=== PATIENT | male | born 1960 | race Caucasian/White ===

== ENCOUNTER 2020-09-17 07:05 | Outpatient (REF) | payer BC, SELFPAY | END 2020-09-17 07:06 | disposition home or self-care (01) | LOC: HO.LAB 07:05 | PROVIDERS: Visit Provider Internal Medicine | DX: Z20.828 Contact with and (suspected) exposure to other viral communicable diseases (principal) | CPT/HCPCS: C9803; U0003 ==

== ENCOUNTER 2023-03-05 08:59 | Outpatient (REF) | payer OTHER, SELFPAY ==
[2023-03-05 11:20] LABS: MANUAL DIFF FLAG NO
[2023-03-05 11:26] LABS: Appearance Urine Clear; Color Urine Yellow; Glucose Urine UA Negative (Negative); Leukocyte Esterase Urine Negative (Negative); Nitrite Urine Negative (Negative); PH 5.5 (5.0-9.0); Specific Gravity - Urine 1.015 (1.005-1.025); Urine Blood Negative (Negative); Urine Ketones Negative (Negative); Urine Protein Negative (Neg-Trace)
[2023-03-05 11:34] LABS: Bacteria Urine None Seen (None Seen); Hyaline Casts Urine 0-2 /LPF (0-2); RBC Urine 0-2 /HPF (0-2); Squamous Epithelial Cell Urine 0-2 /HPF (0-2); WBC Urine 0-5 /HPF (0-5)
[2023-03-05 11:36] LABS: Basophils Absolute Auto 0.1 X10*3/uL (0.0-0.2); Basophils Percent Auto 0.8 % (0-2); Eosinophils Absolute Auto 0.2 X10*3/uL (0.0-0.4); Eosinophils Percent Auto 2.5 % (0-4); Hematocrit 42.5 % (42.0-52.0); Hemoglobin 14.1 g/dl (14.0-18.0); Imm Gran Abs Auto 0.02 X10*3/uL (0.00-0.03); Imm Gran Pct Auto 0.3 % (0.0-0.4); Lymphocytes Absolute Auto 1.8 X10*3/uL (1.2-4.9); Lymphocytes Percent Auto 29.7 % (20-40); Mean Corpuscular HGB Conc 33.2 g/dl (31.0-36.0); Mean Corpuscular Hemoglobin 30.4 pg (27.0-33.0); Mean Corpuscular Volume 91.6 fL (80.0-98.0); Mean Platelet Volume 10.4 fL (9.4-12.4); Monocytes Absolute Auto 0.6 X10*3/uL (0.1-1.2); Monocytes Percent Auto 10.6 % (2-11); Neutrophils Absolute Auto 3.4 x10*3/uL (2.0-8.3); Neutrophils Percent Auto 56.1 % (45-73); Platelet Count 286 X10*3/uL (160-400); Red Blood Count 4.64 X10*6/uL (4.60-5.80); Red Cell Distribution Width 13.4 % (11.0-16.0); White Blood Count 6.1 X10*3/uL (4.8-10.8)
[2023-03-05 11:37] LABS: Estimated Average Glucose 134 mg/dL; Hemoglobin A1c % 6.3 %
[2023-03-05 12:01] LABS: Alanine Aminotransferase 16 U/L (0-40); Albumin Level 4.3 g/dL (3.5-5.0); Alkaline Phosphatase 59 U/L (39-117); Anion Gap 16 (12-20); Aspartate Amino Transferase 13 U/L (5-37); Blood Urea Nitrogen 33 mg/dL (9-16); Calcium 9.4 mg/dL (8.4-10.2); Carbon Dioxide 27 mmol/L (22-29); Chloride 103 mmol/L (96-108); Cholesterol 191 mg/dL; Estimated Glomerular Filt Rate 45; Glucose Fasting 161 mg/dL (60-99); HDL Cholesterol 38 mg/dL; LDL Cholesterol Calculated 129 mg/dl; PSA,Total (Free>4and<10) 4.06 ng/mL (0.00-4.00); Potassium 3.7 mmol/L (3.3-5.1); Sodium 142 mmol/L (135-145); Total Protein 7.5 g/dL (6.5-8.0); Triglycerides 123 mg/dL
[2023-03-05 12:50] LABS: Creatinine Urine 106.39 mg/dL; Microalbum/Creatinine Ratio Ur 13.1 ug/mg cr
[2023-03-10 13:33] LABS: Free Prostate Spec Ag 0.8 ng/mL; Percent Free Prostate Spec Ag 21 % (calc) (>25); Prostate Specific Ag Total 3.8 ng/mL (< OR = 4.0)
== END 2023-03-05 09:00 | disposition home or self-care (01) ==
LOC: HO.HMGCLDS 08:59
PROVIDERS: PCP Internal Medicine; Visit Provider Internal Medicine
DX: Z00.00 Encounter for general adult medical examination without abnormal findings (principal); I12.9 Hypertensive chronic kidney disease with stage 1 through stage 4 chronic kidney disease, or unspecified chronic kidney disease; G47.33 Obstructive sleep apnea (adult) (pediatric); N18.30 Chronic kidney disease, stage 3 unspecified; R73.9 Hyperglycemia, unspecified; Z99.89 Dependence on other enabling machines and devices
CPT/HCPCS: 36415; 80053; 80061; 81001; 82043; 83036; 84153; 84154; 85025

== ENCOUNTER 2023-04-20 11:49 | Outpatient (AMB) | payer OTHER, SELFPAY ==
--- NOTE | 2023-04-20 11:53 | A.OFFVIS_ITS ---
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 Wilkins. He has a past medical history of hypertension and obstructive sleep apnea on CPAP. He presents to the office today as a new patient today for an elevated PSA. When asked he reports to be doing and feeling well. He discusses having had recent annual physical with PCP at which time PSA was drawn and patient was referred due to elevated PSA. In review of patient's chart it appears PSA 03/03-- 4.1 % free PSA 21%. When asked patient denies any known family history of prostate cancer. He denies having any lower urinary tract symptoms. He denies urinary urgency, urinary frequency, incontinence, nocturia, hematuria, dysuria, foul smelling urine, changes to urinary stream, flank pain, fever, and or chills. He is happy with his current voiding parameters. TEENA offered however declined. Discussed potential causes for elevated PSA. Discussed redraw of PSA as well as retroperitoneal ultrasound for further assessment evaluation. Patient discusses working in [place] and traveling here to take care of his mother was recently had a stroke. He discusses riding his stationary bike 4 to 5 times a week. He otherwise offers no issues or concerns at this time. [facility] Medical History Annual physical exam HTN (hypertension) ROBB on CPAP Social History Housing: House Patient Tobacco Use Status: Never used Tobacco e-Cigarette/Vaping Use: Never Used Current occupational status: employed Cognitive needs: No Hearing needs: No Vision needs: Yes Review of Systems Const All systems reviewed & are unremarkable except as noted in HPI and below Reports no additional complaints Eyes Reports no additional complaints ENT Reports no additional complaints Card Reports as per HPI Resp Reports as per HPI GI Reports no additional complaints Reports no additional complaints Neuro Reports no additional complaints Psych Reports no additional complaints Endo Reports no additional complaints Ezekiel/Lymph Reports no additional complaints Aller/Immun Reports no additional complaints Physical Exam Const General: cooperative, healthy appearing, comfortable, no acute distress, well developed, alert and awake Orientation/consciousness: patient oriented x3 Limitations: no limitations HEENT Head: Yes normal to inspection, Yes normocephalic and Yes atraumatic Ears: hearing grossly normal bilaterally Eyes General: appearance normal, both eyes and all related structures Neck Neck: Yes normal visual inspection and Yes trachea midline Chest Chest palpation & inspection: normal inspection of the chest Resp Effort & Inspection: normal respiratory effort and able to speak in complete sentences Cardio Rate: regular rate GI Inspection: Yes normal to inspection Rectal Exam - Male: Yes deferred General: Yes no CVA tenderness Back/Spine/Pelvis Back: no CVA tenderness Skin General skin exam: no rashes or lesions noted Neuro General: patient oriented x3 Extrem General: Yes normal to inspection Psych Appearance: grossly normal and well kempt Mental Status: mental status grossly normal Speech and movement: Normal speech and movement present and Clear speech present Affect: normal affect Attitude: cooperative Thought process: Normal thought process present Thought content: Normal thought content present Insight: Good insight present (Psych) Judgement: Good judgement present (Psych) Results AMB Urinalysis, Automated UA Leukoctes 0 Regina/uL Last Edit by [employer] on 04/20/23 12:08 UA Nitrite Negative Last Edit by [employer] on 04/20/23 12:08 UA Urobilinogen 0.2 mg/dL Last Edit by [employer] on 04/20/23 12:08 UA Protein 0 mg/dL Last Edit by [employer] on 04/20/23 12:08 UA pH 6.0 Last Edit by [employer] on 04/20/23 12:08 UA Blood 0 Manjeet/uL Last Edit by [employer] on 04/20/23 12:08 UA Specific [place] 1.015 Last Edit by [employer] on 04/20/23 12:08 UA Ketone Negative Last Edit by [employer] on 04/20/23 12:08 UA Bilirubin 0 mg/dL Last Edit by [employer] on 04/20/23 12:08 UA Glucose 0 mg/dL Last Edit by [employer] on 04/20/23 12:08 Results Reviewed Results Reviewed: Laboratory Last Values Urine pH (Auto) 6.0 04/20/23 11:55 Specific [place] (Auto) 1.015 04/20/23 11:55 Urine Protein (Auto) 0 mg/dL 04/20/23 11:55 Glucose (UA)(Auto) 0 mg/dL 04/20/23 11:55 Urine Ketones (Auto) Negative 04/20/23 11:55 Urine Blood (Auto) 0 Manjeet/uL 04/20/23 11:55 Urine Nitrite (Auto) Negative 04/20/23 11:55 Urine Bilirubin (Auto) 0 mg/dL 04/20/23 11:55 Urine Urobilinogen (Auto) 0.2 mg/dL 04/20/23 11:55 Leukocyte Esterase (Auto) 0 Regina/uL 04/20/23 11:55 Assessment & Plan Assessment & Plan (1) Elevated PSA: Code(s): R97.20 - Elevated prostate specific antigen [PSA] Plan In office urinalysis results reviewed with the patient today. Recent PSA results reviewed with the patient today. Patient reports to be happy with his current voiding parameters. Will obtain redraw of PSA with specific instructions of no sex the night prior, no heavy lifting 1-2 days prior and no caffeine morning of lab draw. Discussed avoiding exercise with stationary bike prior to lab draw. TEENA offered however declined/deferred. Will obtain retroperitoneal ultrasound for further assessment evaluation. Discussed at length potential causes for elevated PSA. Follow-up in 4-6 weeks with imaging and lab to be completed prior; or sooner with any issues, concerns, and or questions. Orders: Orders PSA,Total (Free>4and<10) Today R97.20 - Elevated prostate specific antigen [PSA] US retroperitoneal comp Today R39.9 - Unspecified symptoms and signs involving the genitourinary system, R97.20 - Elevated prostate specific antigen [PSA] AMB Urinalysis Automated Today Z13.9 - Encounter for screening, unspecified Patient Instructions: The patient had an opportunity to ask questions regarding the treatment plan. All questions were answered. Physical exam, labs, and imaging were discussed and reviewed in detail. As well as risks, benefits, and discussion of treatment c hoices. No major barriers to understanding were identified. The patient expressed understanding and agreement with the above treatment plan. The patient was made aware they should contact our office by phone for worsening of their current condition, the appearance of new symptoms, or with any questions or concerns. Compliance is encouraged with any medications and follow up testing that is ordered. It is a privilege to be allowed the opportunity to participate in? your urological care.? Again, if you have any questions or concerns If you have any questions or concerns please do not hesitate to contact me. The office is [phone]. This note is constructed using voice recognition software. While every effort has been made to ensure accuracy office support assistant errors may have been included. Yours sincerely, REUBEN Prieto Coding Level of Care Code New Pt Level 3 (09416) Diagnoses Elevated PSA R97.20
== END 2023-04-20 13:33 | disposition home or self-care (01) ==
PROVIDERS: PCP Internal Medicine; Visit Provider Nurse Practitioner Family
DX: R97.20 Elevated prostate specific antigen [PSA] (principal)
CPT/HCPCS: 99203

== ENCOUNTER → 2023-04-20 11:49 | Outpatient (BNVA) | payer OTHER, SELFPAY | PROVIDERS: PCP Internal Medicine; Visit Provider Nurse Practitioner Family | DX: R97.20 Elevated prostate specific antigen [PSA] (principal) | CPT/HCPCS: 99202 ==

== ENCOUNTER 2023-04-21 06:14 | Outpatient (REF) | payer OTHER, SELFPAY ==
[2023-04-21 12:08] LABS: PSA,Total (Free>4and<10) 3.16 ng/mL (0.00-4.00)
== END 2023-04-21 06:15 | disposition home or self-care (01) ==
LOC: HO.HMGCLDS 06:14
PROVIDERS: PCP Internal Medicine; Visit Provider Nurse Practitioner Family
DX: R97.20 Elevated prostate specific antigen [PSA] (principal)
CPT/HCPCS: 36415; 84153

== ENCOUNTER 2023-05-25 08:25 | Outpatient (REF) | payer OTHER, SELFPAY ==
--- NOTE | ~2023-05-25 | US_ITS ---
EXAMINATION: US RETROPERITONEAL COMPLETE (RENAL) CLINICAL INFORMATION: Elevated prostate-specific antigen. COMPARISON: Doppler renal ultrasound 09/15/2019. TECHNIQUE: Real-time imaging of the kidneys and bladder. FINDINGS: RIGHT KIDNEY: 13.3 x 5.2 x 5.8 cm (SAG x AP x TRV). The kidney is normal in size, contour, and echogenicity. Renal cortical thickness is normal. No focal parenchymal lesions or hydronephrosis. At the upper pole, a 3 mm nonobstructing calculus is seen. LEFT KIDNEY: 13.5 x 6.2 x 5.9 cm (SAG x AP x TRV). The kidney is normal in size, contour, and echogenicity. Renal cortical thickness is normal. No calculi or focal parenchymal lesions. No hydronephrosis. BLADDER: Well distended and normal. Bilateral ureteral jets are demonstrated. Prevoid bladder volume is 474 mL. Postvoid bladder volume is 10 mL. OTHER: Prostate dimensions are 5.5 x 4.4 x 5.4 cm, volume 50.6 mL. US/US retroperitoneal comp IMPRESSION: 1. Unremarkable ultrasound examination. 2. There is prostatomegaly.
== END 2023-05-25 08:26 | disposition home or self-care (01) ==
LOC: HO.HMGCX 08:25
PROVIDERS: PCP Internal Medicine; Visit Provider Nurse Practitioner Family
DX: R97.20 Elevated prostate specific antigen [PSA] (principal); R39.9 Unspecified symptoms and signs involving the genitourinary system
CPT/HCPCS: 76770

== ENCOUNTER 2023-06-01 09:16 | Outpatient (AMB) | payer OTHER, SELFPAY ==
--- NOTE | 2023-06-01 09:16 | MHC.OFFVIS ---
Intake Intake Visit Reasons: 6w/US/labs(set) Intake Note: Patient presents for tele visit for labs/ultrasound/ Elevated PSA (psa 4.06) (imaging 05/25/23) Urology Medications: none Blood Thinner: none Receptionist Doctor'S Office Required: No Accompanied by: Self / Same As Patient Allergies No Known Allergies [No Known Allergies*] Allergy (Unverified 06/01/23 09:37) Medication List - Last Reconciled 06/01/23 by RODDY PrietoP- amlodipine 10 mg PO DAILY hydralazine 50 mg PO TID lisinopril 40 mg PO DAILY metoprolol succinate ER 25 mg PO DAILY triamterene-hydrochlorothiazid 37.5-25 mg 1 tab PO QAM HPI HPI Comments History of Present Illness Details Ilir is a very pleasant 62 year old male patient of Dr. Wilkins. He has a past medical history of hypertension and obstructive sleep apnea on CPAP. He is being followed-up on today via telehealth. Of note, patient was previously seen approximately 6 weeks ago as a new patient for an elevated PSA at which time redraw of PSA and retroperitoneal ultrasound was ordered for further assessment evaluation. These results were reviewed with the patient today. Right kidney with no lesions or hydronephrosis. At the upper pole 3 mm nonobstructing calculus is seen. Left kidney with no calculi, lesions, and or hydronephrosis. The bladder is well distended and normal. Pre void bladder volume is approximately 475 mL. Postvoid bladder volume is approximately 10 mL. The prostate is enlarged at approximately 51 mL. PSAs are as follows: 07/2019--3.6 02/2023--4.1 02/2023--3.8 % free--21% 04/2023--3.2 When asked patient reports to be doing and feeling well. He continues to deny any urinary issues or concerns at this time. He denies urinary urgency, urinary frequency, incontinence, nocturia, hematuria, dysuria, foul smelling urine, changes to urinary stream, flank pain, fever, and or chills. He is happy with his current voiding parameters. Discussed potential causes for elevated PSA. Discussed at length prostate biopsy verses trial of finasteride 5 mg daily. Discussed risks and benefits of prostate biopsy verses trial of medication. Discussed nephrolithiasis. Discussed importance of drinking plenty of water daily. Patient otherwise denies any other issues or concerns at this time. [facility] Medical History Annual physical exam HTN (hypertension) ROBB on CPAP Social History Housing: House Patient Tobacco Use Status: Never used Tobacco e-Cigarette/Vaping Use: Never Used Current occupational status: employed Cognitive needs: No Hearing needs: No Vision needs: Yes Review of Systems Const All systems reviewed & are unremarkable except as noted in HPI and below Reports no additional complaints Eyes Reports no additional complaints ENT Reports no additional complaints Card Reports as per HPI Resp Reports as per HPI GI Reports no additional complaints Reports no additional complaints Neuro Reports no additional complaints Psych Reports no additional complaints Endo Reports no additional complaints Ezekiel/Lymph Reports no additional complaints Aller/Immun Reports no additional complaints Physical Exam Const General: cooperative Resp Effort & Inspection: able to speak in complete sentences Psych Speech and movement: Clear speech present Attitude: cooperative Thought process: Normal thought process present Thought content: Normal thought content present Insight: Good insight present (Psych) Judgement: Good judgement present (Psych) Results Reviewed Results Reviewed: Ordering Physician: Megan Burgos Date of Service: 05/25/23 Procedure(s): US retroperitoneal comp Accession Number(s): [id number] cc: Megan Burgos~ EXAMINATION: US RETROPERITONEAL COMPLETE (RENAL) CLINICAL INFORMATION: Elevated prostate-specific antigen. COMPARISON: Doppler renal ultrasound 09/15/2019. TECHNIQUE: Real-time imaging of the kidneys and bladder. FINDINGS: RIGHT KIDNEY: 13.3 x 5.2 x 5.8 cm (SAG x AP x TRV). The kidney is normal in size, contour, and echogenicity. Renal cortical thickness is normal. No focal parenchymal lesions or hydronephrosis. At the upper pole, a 3 mm nonobstructing calculus is seen. LEFT KIDNEY: 13.5 x 6.2 x 5.9 cm (SAG x AP x TRV). The kidney is normal in size, contour, and echogenicity. Renal cortical thickness is normal. No calculi or focal parenchymal lesions. No hydronephrosis. BLADDER: Well distended and normal. Bilateral ureteral jets are demonstrated. Prevoid bladder volume is 474 mL. Postvoid bladder volume is 10 mL. OTHER: Prostate dimensions are 5.5 x 4.4 x 5.4 cm, volume 50.6 mL. US/US retroperitoneal comp IMPRESSION: ? 1. Unremarkable ultrasound examination. ? 2. There is prostatomegaly. Assessment & Plan Assessment & Plan (1) Enlarged prostate: Code(s): N40.0 - Benign prostatic hyperplasia without lower urinary tract symptoms (2) Elevated PSA: Code(s): R97.20 - Elevated prostate specific antigen [PSA] Plan Recent retroperitoneal ultrasound results reviewed with the patient today; as noted above. Recent PSA results reviewed with the patient today; as noted above. Start finasteride 5 mg daily as discussed and prescribed. Discussed at length potential causes for elevated PSA and enlarged prostate Discussed prostate biopsy verses trial of finasteride 5 mg daily; discussed risks and benefits of both treatment options at length Discussed nephrolithiasis Educated, encouraged, instructed on the importance of drinking plenty of water daily. Discussed adding 1 oz of lemon juice to water daily. Patient denies any urinary issues or concerns at this time; he is happy with his current voiding parameters PSA in 4 months; with no sex the night before, no caffeine morning of, and no heavy lifting 2-3 days prior to lab draw Follow-up in 4 months with lab to be completed prior or sooner with any issues, concerns, and or questions. Orders: Orders Prostate Specific Antigen 4 Months R97.20 - Elevated prostate specific antigen [PSA] Patient Instructions: The patient had an opportunity to ask questions regarding the treatment plan. All questions were answered. Physical exam, labs, and imaging were discussed and reviewed in detail. As well as risks, benefits, and discussion of treatment choices. No major barriers to understanding were identified. The patient expressed understanding and agreement with the above treatment plan. The patient was made aware they should contact our office by phone for worsening of their current condition, the appearance of new symptoms, or with any questions or concerns. Compliance is encouraged with any medications and follow up testing that is ordered. It is a privilege to be allowed the opportunity to participate in? your urological care.? Again, if you have any questions or concerns If you have any questions or concerns please do not hesitate to contact me. The office is [phone]. This note is constructed using voice recognition software. While every effort has been made to ensure accuracy assembler clip on sunglasses errors may have been included. Yours sincerely, SAMIA Prieto- Telehealth Telehealth Location of provider rendering services: practice address Location of patient: address on file Patient Identification confirmed using: Name, : Yes Telehealth method: voice only Patient verbally consented to treatment: Yes Patient verbally consented to billing insurance company: Yes Patient informed of any privacy concerns related to visit: Yes Minutes spent on Phone/Video with Pt.: 15 Coding Level of Care Code Tele Est Pt Level 4 (49113) Diagnoses Enlarged prostate N40.0 Elevated PSA R97.20 Time Spent (min) 15
== END 2023-06-01 14:45 | disposition home or self-care (01) ==
LOC: HO.HUSH 09:16
PROVIDERS: PCP Internal Medicine; Visit Provider Nurse Practitioner Family
DX: N40.0 Benign prostatic hyperplasia without lower urinary tract symptoms (principal); R97.20 Elevated prostate specific antigen [PSA]
CPT/HCPCS: 99213

== ENCOUNTER → 2023-06-01 09:16 | Outpatient (BNVA) | payer OTHER, SELFPAY | PROVIDERS: PCP Internal Medicine; Visit Provider Nurse Practitioner Family ==

== ENCOUNTER 2024-05-23 07:18 | Outpatient (REF) | payer MEDICARE, SELFPAY ==
[2024-05-23 09:51] LABS: MANUAL DIFF FLAG NO
[2024-05-23 10:00] LABS: Basophils Absolute Auto 0.1 X10*3/uL (0.0-0.2); Basophils Percent Auto 0.7 % (0-2); Eosinophils Absolute Auto 0.1 X10*3/uL (0.0-0.4); Hematocrit 40.4 % (42.0-52.0); Hemoglobin 13.8 g/dl (14.0-18.0); Imm Gran Abs Auto 0.02 X10*3/uL (0.00-0.03); Imm Gran Pct Auto 0.3 % (0.0-0.4); Lymphocytes Absolute Auto 2.3 X10*3/uL (1.2-4.9); Lymphocytes Percent Auto 34.1 % (20-40); Mean Corpuscular HGB Conc 34.2 g/dl (31.0-36.0); Mean Corpuscular Volume 90.8 fL (80.0-98.0); Mean Platelet Volume 10.4 fL (9.4-12.4); Monocytes Absolute Auto 0.7 X10*3/uL (0.1-1.2); Monocytes Percent Auto 10.2 % (2-11); Neutrophils Absolute Auto 3.6 x10*3/uL (2.0-8.3); Neutrophils Percent Auto 52.7 % (45-73); Platelet Count 314 X10*3/uL (160-400); Red Blood Count 4.45 X10*6/uL (4.60-5.80); Red Cell Distribution Width 13.4 % (11.0-16.0); White Blood Count 6.8 X10*3/uL (4.8-10.8)
[2024-05-23 10:14] LABS: Alanine Aminotransferase 12 U/L (0-40); Albumin Level 4.1 g/dL (3.5-5.0); Alkaline Phosphatase 65 U/L (39-117); Anion Gap 12 (12-20); Aspartate Amino Transferase 12 U/L (5-37); Bilirubin Total 0.4 mg/dL (0.0-1.0); Blood Urea Nitrogen 25 mg/dL (9-16); Calcium 9.4 mg/dL (8.4-10.2); Carbon Dioxide 29 mmol/L (22-29); Chloride 105 mmol/L (96-108); Cholesterol 163 mg/dL (<200); Estimated Glomerular Filt Rate 46; Glucose Fasting 126 mg/dL (60-99); HDL Cholesterol 38 mg/dL (>40); LDL Cholesterol Calculated 99 mg/dL (<100); Potassium 3.6 mmol/L (3.3-5.1); Sodium 142 mmol/L (135-145); Total Protein 7.5 g/dL (6.5-8.0); Triglycerides 133 mg/dL (<150)
[2024-05-23 10:28] LABS: Creatinine Urine 124.26 mg/dL; Microalbum/Creatinine Ratio Ur 32.9 ug/mg cr (<30)
[2024-05-23 10:29] LABS: Appearance Urine Clear; Color Urine Yellow; Glucose Urine UA Negative (Negative); Leukocyte Esterase Urine Negative (Negative); Nitrite Urine Negative (Negative); PH 6.5 (5.0-9.0); Specific Gravity - Urine 1.015 (1.005-1.025); Urine Blood Negative (Negative); Urine Ketones Negative (Negative); Urine Protein Negative (Neg-Trace)
[2024-05-23 10:38] LABS: Bacteria Urine None Seen (None Seen); Hyaline Casts Urine 0-2 /LPF (0-2); RBC Urine 0-2 /HPF (0-2); Squamous Epithelial Cell Urine 0-2 /HPF (0-2); WBC Urine 0-5 /HPF (0-5)
[2024-05-23 10:39] LABS: PSA,Total (Free>4and<10) 5.47 ng/mL (0.00-4.00)
[2024-05-23 10:52] LABS: Estimated Average Glucose 134 mg/dL; Hemoglobin A1c % 6.3 % (<6.0)
[2024-05-24 10:58] LABS: Free Prostate Spec Ag 0.9 ng/mL; Percent Free Prostate Spec Ag 18 % (calc) (>25)
== END 2024-05-23 07:19 | disposition home or self-care (01) ==
LOC: HO.HMGCLDS 07:18
PROVIDERS: PCP Internal Medicine; Visit Provider Internal Medicine
DX: I10 Essential (primary) hypertension (principal); N18.30 Chronic kidney disease, stage 3 unspecified; R73.9 Hyperglycemia, unspecified; R97.20 Elevated prostate specific antigen [PSA]; Z12.5 Encounter for screening for malignant neoplasm of prostate
CPT/HCPCS: 36415; 80053; 80061; 81001; 82043; 82570; 83036; 84153; 84154; 85025

== ENCOUNTER 2024-05-24 13:23 | Outpatient (AMB) | payer MEDICARE, SELFPAY ==
[2024-05-24 13:24] VITALS: BP 128/74; PULSE 97; O2SAT 98; BMI 35.6
--- NOTE | 2024-05-24 13:24 | A.OFFPC_ITS ---
Vital Signs 05/24/24 13:24 Height 5 ft 8 in Weight 234 lb BMI 35.6 BP 128/74 Blood Pressure Location Lt brachial Position Sitting Pulse 97 Pulse Source Pulse Oximeter Pulse Oximetry (%) 98 Oxygen Delivery Method Room Air Intake Visit Reasons: PE Intake Note: Pt is here today for PE. Allergies No Known Allergies [No Known Allergies*] Allergy (Unverified 05/24/24 13:26) Medication List - Last Reconciled 05/24/24 by Amira Wilkins MD amlodipine 10 mg PO DAILY finasteride 5 mg PO DAILY 90 days hydralazine 50 mg PO TID lisinopril 40 mg PO DAILY metoprolol succinate ER 25 mg PO DAILY triamterene-hydrochlorothiazid 37.5-25 mg 1 tab PO QAM Tobacco use date assessed: 05/24/24 Fall risk assessment: No Falls in past year Last assessed Fall Risk: 05/24/24 Dental Screening Dental Screen Date: 05/24/24 Did you have a dental visit in the last 12 months?: Yes Did you have a dental problem in the last 6 months where you did not have access to dental care?: No Was dental information given to patient?: Patient has dentist HPI PE HPI Details Pt presents for PE. [facility] Medical History ROBB on CPAP Annual physical exam HTN (hypertension) Surgical History H/O eye surgery Social History (Updated 05/24/24 @ 14:13 by Amira Wilkins MD) Household Members Other:: Patient spends a lot of time in [facility] taking care of her mother Housing: House Patient Tobacco Use Status: Never used Tobacco e-Cigarette/Vaping Use: Never Used service: No Current occupational status: employed Cognitive needs: No Hearing needs: No Vision needs: Yes Questionnaire PHQ-9 Over the last 2 weeks, how often have you been bothered by any of the following problems? 1. Little interest or pleasure in doing things: not at all 2. Feeling down, depressed, or hopeless: not at all 3. Trouble falling or staying asleep, or sleeping too much: not at all 4. Feeling tired or having little energy: not at all 5. Poor appetite or overeating: not at all 6. Feeling bad about yourself - or that you are a failure or have let yourself or your family down: not at all 7. Trouble concentrating on things, such as reading the newspaper or watching television: not at all 8. Moving or speaking so slowly that other people could have noticed. Or the opposite - being so fidgety or restless that you have been moving around a lot more than usual: not at all 9. Thoughts that you would be better off or of hurting yourself in some way: not at all Total score: 0 Depression Screening Interpretation: Negative Depression Screening Done: Yes 23237 - PHQ-9 Billing: Yes Source: Developed by Drs. Kayden Larson, Yaneth Garland, Roel Rivera and colleagues, with an educational irene from [employer]. Thrive Questionnaire Date Thrive assessed: 05/24/24 I am a: Patient What is your living situation today?: I have a steady place to live Within the past 12 months, did the food you bought not last and you didn't have the money to get more?: Never true Within the past 12 months, did you worry whether your food would run out before you got money to buy more?: Never true Do you have trouble paying for medicines?: No Do you have trouble getting transportation to medical appointments?: No Do you have trouble paying your heating and electricity bill?: No Do you have trouble taking care of your child, family member or friend?: No Do you have trouble with day-to-day activities such as bathing, preparing meals, shopping, managing finances, etc.?: No Are you currently unemployed and looking for a job?: No Are you interested in more education?: No Please select the resources that you would like help with: None Currently or been in a relationship where the following occur: No concerns reported THRIVE Score: 0 AUDIT C Alcohol Use Questionnaire (AUDIT-C) 1. How often do you have a drink containing alcohol?: Monthly or less 2. How many drinks containing alcohol do you have on a typical day when you are drinking?: 1 or 2 3. How often do you have six or more drinks on one occasion?: Never Total Score: 1 JESSI-7 AMB Questionnaire JESSI-7 Date JESSI - 7 assessed: 05/24/24 Feeling nervous, anxious, or on edge: 0 = Not at all Not being able to stop or control worryin = Not at all Worrying too much about different things: 0 = Not at all Trouble relaxin = Not at all Being so restless that it is hard to sit still: 0 = Not at all Becoming easily annoyed or irritable: 0 = Not at all Feeling afraid as if something awful might happen: 0 = Not at all Total JESSI-7 score (0-4 normal; 5-9 mild; 10-14 moderate; 15-21 severe): 0 Source: Developed by Drs. Kayden Larson, Yaneth Garland, Roel Rivera and colleagues, with an educational irene from [employer]. JESSI-7 Assessment Billing JESSI-7 Assessment Tool: JESSI-7 Assessment 54829 Review of Systems Const All systems reviewed & are unremarkable except as noted in HPI and below Eyes Reports no additional complaints ENT Reports no additional complaints Card Reports no additional complaints Resp Reports no additional complaints GI Reports no additional complaints Reports no additional complaints Physical exam (Primary Care) Vital Signs: Last Vital Signs Pulse 97 05/24/24 13:24 BP 128/74 05/24/24 13:24 Pulse Ox 98 05/24/24 13:24 Oxygen Delivery Method Room Air 05/24/24 13:24 BMI result Body Mass Index 35.6 Tobacco/Smoking Status: Tobacco use Status Tobacco use date assessed 05/24/24 05/24/24 13:30 Patient Tobacco Use Status Never used Tobacco 05/24/24 13:30 e-Cigarette/Vaping Use Never Used 05/24/24 13:30 PHQ-9: PHQ-9 Score PHQ-9: Total score 0 05/24/24 13:37 Depression Screening Interpretation: Negative Thrive Assessment: Date of Thrive Assessment Date Thrive assessed 05/24/24 05/24/24 13:30 Currently or been in a relationship where the following occur: No concerns reported Const General: no acute distress HENMT Head: Yes normal to inspection Throat: Yes posterior oropharynx normal Neck Neck: Yes supple Resp Effort & Inspection: normal respiratory effort Auscultation: clear to auscultation bilaterally Cardio Rhythm: regular rhythm Heart sounds: S1 normal heart sound present and S2 normal heart sound present GI Inspection: Yes normal to inspection Palpation (GI): Soft to palpation Percussion: Yes normal to percussion Auscultation: normal bowel sounds Extrem General: Yes no clubbing, cyanosis or edema Assessment and Plan Assessment & Plan (1) HTN (hypertension): Code(s): I10 - Essential (primary) hypertension Plan: Continue current medications (2) Annual physical exam: Code(s): Z00.00 - Encounter for general adult medical examination without abnormal findings Plan: Well-balanced diet regular exercise weight loss discussed with the patient. He declined colonoscopy Cologuard will be ordered (3) CKD (chronic kidney disease) stage 3, GFR 30-59 ml/min: Comment: RENAL US 04/2023 no obstruction, 2 mm left kidney stone Code(s): N18.30 - Chronic kidney disease, stage 3 unspecified Plan: Avoid nephrotoxins monitor renal function (4) Hyperglycemia: Comment: A1C 6.3 , ADA diet, declined med 05/2024 Code(s): R73.9 - Hyperglycemia, unspecified Plan: ADA diet increase exercise weight loss discussed with the patient (5) Elevated PSA: Comment: started on Finasteride, 05/2024 Code(s): R97.20 - Elevated prostate specific antigen [PSA] Plan: Patient will restart finasteride PSA will be checked in 1 year Orders: Orders Comprehensive [place]. Panel Fast 1 Year I10 - Essential (primary) hypertension, N18.30 - Chronic kidney disease, stage 3 unspecified, R73.9 - Hyperglycemia, unspecified, R97.20 - Elevated prostate specific antigen [PSA], Z00.00 - Encounter for general adult medical examination without abnormal findings Microalbumin, Random (w Creat) 1 Year I10 - Essential (primary) hypertension, N18.30 - Chronic kidney disease, stage 3 unspecified, R73.9 - Hyperglycemia, unspecified, R97.20 - Elevated prostate specific antigen [PSA], Z00.00 - Encounter for general adult medical examination without abnormal findings Complete Blood Count Auto Diff 1 Year I10 - Essential (primary) hypertension, N18.30 - Chronic kidney disease, stage 3 unspecified, R73.9 - Hyperglycemia, unspecified, R97.20 - Elevated prostate specific antigen [PSA], Z00.00 - Encounter for general adult medical examination without abnormal findings Lipid Panel 1 Year I10 - Essential (primary) hypertension, N18.30 - Chronic kidney disease, stage 3 unspecified, R73.9 - Hyperglycemia, unspecified, R97.20 - Elevated prostate specific antigen [PSA], Z00.00 - Encounter for general adult medical examination without abnormal findings Hemoglobin A1c 1 Year I10 - Essential (primary) hypertension, N18.30 - Chronic kidney disease, stage 3 unspecified, R73.9 - Hyperglycemia, unspecified, R97.20 - Elevated prostate specific antigen [PSA], Z00.00 - Encounter for general adult medical examination without abnormal findings UA w Microscopic 1 Year I10 - Essential (primary) hypertension, N18.30 - Chronic kidney disease, stage 3 unspecified, R73.9 - Hyperglycemia, unspecified, R97.20 - Elevated prostate specific antigen [PSA], Z00.00 - Encounter for general adult medical examination without abnormal findings PSA,Total (Free>4and<10) 1 Year I10 - Essential (primary) hypertension, N18.30 - Chronic kidney disease, stage 3 unspecified, R73.9 - Hyperglycemia, unspecified, R97.20 - Elevated prostate specific antigen [PSA], Z00.00 - Encounter for general adult medical examination without abnormal findings Referrals Cologuard Test Z12.11 - Encounter for screening for malignant neoplasm of colon, Z12.12 - Encounter for screening for malignant neoplasm of rectum Medications: Refilled finasteride 5 mg PO DAILY 90 days 90 tabs 3RF finasteride 5 mg PO DAILY 90 days 90 tabs 1RF triamterene-hydrochlorothiazid 37.5-25 mg 1 tab PO QAM 90 tabs 3RF Coding Level of Care Code Est Pt Prev Care >65y(22966) Diagnoses HTN (hypertension) I10 Annual physical exam Z00.00 CKD (chronic kidney disease) stage 3, GFR 30-59 ml/min N18.30 Hyperglycemia R73.9 Elevated PSA R97.20 Additional Codes JESSI-7 Assessment Billing - JESSI-7 Assessment Tool: JESSI-7 Assessment 19406 ([id number])
== END 2024-05-24 14:04 | disposition home or self-care (01) ==
PROVIDERS: PCP Internal Medicine; Visit Provider Internal Medicine
DX: Z00.00 Encounter for general adult medical examination without abnormal findings (principal); I12.9 Hypertensive chronic kidney disease with stage 1 through stage 4 chronic kidney disease, or unspecified chronic kidney disease; N18.30 Chronic kidney disease, stage 3 unspecified; R73.9 Hyperglycemia, unspecified; R97.20 Elevated prostate specific antigen [PSA]
CPT/HCPCS: 99397

== ENCOUNTER 2025-06-07 10:05 | Outpatient (AMB) | payer MEDICARE, SELFPAY ==
--- NOTE | 2025-06-07 10:12 | A.OFFPC_ITS ---
Vital Signs 06/07/25 10:13 Height 5 ft 8 in Weight 240 lb BMI 36.5 BP 130/74 Blood Pressure Location Rt brachial Position Sitting Respiration 18 Pulse 78 Pulse Source Pulse Oximeter Temp 98.2 F Temp Source Oral Pulse Oximetry (%) 97 Oxygen Delivery Method Room Air Intake Visit Reasons: Annual PE - see comments Intake Note: Pt is here today for PE. Allergies No Known Allergies (No Known Allergies*) Allergy (Unverified 06/07/25 10:16) Medication List - Last Reconciled 06/07/25 by Amira Wilkins MD amlodipine 10 mg PO DAILY finasteride 5 mg PO DAILY 90 days hydralazine 50 mg PO TID lisinopril 40 mg PO DAILY metoprolol succinate ER 25 mg PO DAILY triamterene-hydrochlorothiazid 37.5-25 mg 1 tab PO QAM Tobacco use date assessed: 06/07/25 Fall risk assessment: No Falls in past year Last assessed Fall Risk: 06/07/25 Dental Screening Dental Screen Date: 06/07/25 Did you have a dental visit in the last 12 months?: Yes Did you have a dental problem in the last 6 months where you did not have access to dental care?: No Was dental information given to patient?: Patient has dentist [facility] Medical History (Updated 06/07/25 @ 10:55 by Amira Wilkins MD) Obesity, Class II, BMI 35-39.9 Colonoscopy refused Elevated PSA CKD (chronic kidney disease) stage 3, GFR 30-59 ml/min Hyperglycemia ROBB on CPAP Annual physical exam HTN (hypertension) Surgical History H/O eye surgery Social History Household Members Other:: Patient spends a lot of time in [facility] taking care of her mother Housing: House Patient Tobacco Use Status: Never used Tobacco e-Cigarette/Vaping Use: Never Used service: No Current occupational status: employed Cognitive needs: No Hearing needs: No Vision needs: Yes Questionnaire PHQ-9 Over the last 2 weeks, how often have you been bothered by any of the following problems? 1. Little interest or pleasure in doing things: not at all 2. Feeling down, depressed, or hopeless: not at all 3. Trouble falling or staying asleep, or sleeping too much: not at all 4. Feeling tired or having little energy: not at all 5. Poor appetite or overeating: not at all 6. Feeling bad about yourself - or that you are a failure or have let yourself or your family down: not at all 7. Trouble concentrating on things, such as reading the newspaper or watching television: not at all 8. Moving or speaking so slowly that other people could have noticed. Or the opposite - being so fidgety or restless that you have been moving around a lot more than usual: not at all 9. Thoughts that you would be better off or of hurting yourself in some way: not at all Total score: 0 Depression Screening Interpretation: Negative Depression Screening Done: Yes 36743 - PHQ-9 Billing: Yes Source: Developed by Drs. Kayden Larson, Yaneth Garland, Roel Rivera and colleagues, with an educational irene from [employer]. Thrive Questionnaire Date Thrive assessed: 06/07/25 I am a: Patient What is your living situation today?: I have a steady place to live Within the past 12 months, did the food you bought not last and you didn't have the money to get more?: Never true Within the past 12 months, did you worry whether your food would run out before you got money to buy more?: Never true Do you have trouble paying for medicines?: No Do you have trouble getting transportation to medical appointments?: No Do you have trouble paying your heating and electricity bill?: No Do you have trouble taking care of your child, family member or friend?: No Do you have trouble with day-to-day activities such as bathing, preparing meals, shopping, managing finances, etc.?: No Are you currently unemployed and looking for a job?: No Are you interested in more education?: No Please select the resources that you would like help with: None Currently or been in a relationship where the following occur: No concerns reported THRIVE Score: 0 AUDIT C Alcohol Use Questionnaire (AUDIT-C) 1. How often do you have a drink containing alcohol?: Monthly or less 2. How many drinks containing alcohol do you have on a typical day when you are drinking?: 1 or 2 3. How often do you have six or more drinks on one occasion?: Never Total Score: 1 JESSI-7 AMB Questionnaire JESSI-7 Date JESSI - 7 assessed: 06/07/25 Feeling nervous, anxious, or on edge: 0 = Not at all Not being able to stop or control worryin = Not at all Worrying too much about different things: 0 = Not at all Trouble relaxin = Not at all Being so restless that it is hard to sit still: 0 = Not at all Becoming easily annoyed or irritable: 0 = Not at all Feeling afraid as if something awful might happen: 0 = Not at all Total JESSI-7 score (0-4 normal; 5-9 mild; 10-14 moderate; 15-21 severe): 0 Source: Developed by Drs. Kayden Larson, Yaneth Garland, Roel Rivera and colleagues, with an educational irene from [employer]. JESSI-7 Assessment Billing JESSI-7 Assessment Tool: JESSI-7 Assessment 69834 Review of Systems Const All systems reviewed & are unremarkable except as noted in HPI and below Eyes Reports no additional complaints ENT Reports no additional complaints Card Reports no additional complaints Resp Reports no additional complaints GI Reports no additional complaints Reports no additional complaints Physical exam (Primary Care) Vital Signs: Last Vital Signs Temp 98.2 F 06/07/25 10:13 Pulse 78 06/07/25 10:13 Resp 18 06/07/25 10:13 BP 130/74 06/07/25 10:13 Pulse Ox 97 06/07/25 10:13 Oxygen Delivery Method Room Air 06/07/25 10:13 BMI result Body Mass Index 36.5 Tobacco/Smoking Status: Tobacco use Status Tobacco use date assessed 06/07/25 06/07/25 10:19 Patient Tobacco Use Status Never used Tobacco 06/07/25 10:19 e-Cigarette/Vaping Use Never Used 06/07/25 10:13 PHQ-9: PHQ-9 Score PHQ-9: Total score 0 06/07/25 10:19 Depression Screening Interpretation: Negative Thrive Assessment: Date of Thrive Assessment Date Thrive assessed 06/07/25 06/07/25 10:19 Currently or been in a relationship where the following occur: No concerns reported Const General: no acute distress HENMT Head: Yes normal to inspection Mouth: Normal oral and palatal mucosa present Throat: Yes posterior oropharynx normal Neck Neck: Yes no lymphadenopathy and Yes supple Resp Effort & Inspection: normal respiratory effort Auscultation: clear to auscultation bilaterally Cardio Rhythm: regular rhythm Heart sounds: S1 normal heart sound present and S2 normal heart sound present GI Inspection: Yes normal to inspection Palpation (GI): Soft to palpation Percussion: Yes normal to percussion Auscultation: normal bowel sounds Coding Level of Care Code Est Pt Prev Care >65y(97813) Diagnoses CKD (chronic kidney disease) stage 3, GFR 30-59 ml/min N18.30 Annual physical exam Z00.00 Elevated PSA R97.20 ROBB on CPAP G47.33; Z99.89 HTN (hypertension) I10 Hyperglycemia R73.9 Obesity, Class II, BMI 35-39.9 E66.812 Additional Codes JESSI-7 Assessment Billing - JESSI-7 Assessment Tool: JESSI-7 Assessment 50424 ([id number]) PHQ-9 - 21848 - PHQ-9 Billing: Yes ([id number]) Assessment & Plan Assessment & Plan (1) CKD (chronic kidney disease) stage 3, GFR 30-59 ml/min: Comment: RENAL US 04/2023 no obstruction, 2 mm left kidney stone Code(s): N18.30 - Chronic kidney disease, stage 3 unspecified Category: Medical Plan: Avoid nephrotoxins monitor renal function patient will return for fasting labs tomorrow (2) Annual physical exam: Code(s): Z00.00 - Encounter for general adult medical examination without abnormal findings Category: Medical Plan: Well-balanced diet regular physical activity weight loss discussed with the patient. He refused colonoscopy Cologuard is ordered. (3) Elevated PSA: Comment: started on Finasteride, 05/2024 Code(s): R97.20 - Elevated prostate specific antigen [PSA] Category: Medical Plan: Continue finasteride check PSA (4) ROBB on CPAP: Code(s): G47.33 - Obstructive sleep apnea (adult) (pediatric); Z99.89 - Dependence on other enabling machines and devices Category: Medical Plan: Continue CPAP patient will obtain report on a compliance (5) HTN (hypertension): Code(s): I10 - Essential (primary) hypertension Category: Medical Plan: Continue current medications (6) Hyperglycemia: Comment: A1C 6.3 , ADA diet, declined med 05/2024 Code(s): R73.9 - Hyperglycemia, unspecified Category: Medical Plan: ADA diet increase exercise weight loss discussed with the patient check A1c tomorrow follow-up in 4 months with a fasting labs before (7) Obesity, Class II, BMI 35-39.9: Code(s): E66.812 - Obesity, class 2 Category: Medical Plan: Decreasing caloric intake increasing physical activity discussed with the patient. He may benefit from GLP 1 agonist if the A1c is 6.5 or above 2 facilitate weight loss Orders: Orders Complete Blood Count Auto Diff 4 Months N18.30 - Chronic kidney disease, stage 3 unspecified, R73.9 - Hyperglycemia, unspecified Hemoglobin A1c 4 Months N18.30 - Chronic kidney disease, stage 3 unspecified, R73.9 - Hyperglycemia, unspecified Comprehensive [place]. Panel Fast 4 Months N18.30 - Chronic kidney disease, stage 3 unspecified, R73.9 - Hyperglycemia, unspecified Referrals Cologuard Test Z12.11 - Encounter for screening for malignant neoplasm of colon, Z12.12 - Encounter for screening for malignant neoplasm of rectum
[2025-06-07 10:13] VITALS: BP 130/74; PULSE 78; RESP 18; TEMP 36.8; O2SAT 97; BMI 36.5
--- OUTSIDE RECORDS SUMMARY | 2025-06-07 10:54 | XMS_ITS | Continuity of Care Document ---
Author Organization [facility] Address [address] [place] [address] Phone [phone] Care Team Providers Care Cold Rolling Coordinator Name Role Phone Danny Shay MD Care Team Information Banking Services Officer U navailable Problems Active Problems Provider Date Hypertensive disorder TY Lenz Onse t: 06/18/2022 Allergies and adverse reactions Description No Known Drug Allergies Medications Active Medications SIG Qnty Indications Order ing Provider Date Diclofenac Sodium [id number] Tablets ER 24HR take one tab by mouth every day with food 30tabs Laurel Madrdi MD 12/29/2022 Lisinopril Unknown 000 0 Hydrochlorothiazide Unknown Medications Administered in Office Medication SIG Qnty Indications Ordering Provider Date Inject/Drain Arthrocentesis Intermediate Joint/BursaInjection TY Ware 01/12/2023
== END 2025-06-07 10:53 | disposition home or self-care (01) ==
LOC: HO.HMCC 10:06
PROVIDERS: PCP Internal Medicine; Visit Provider Internal Medicine
DX: Z00.00 Encounter for general adult medical examination without abnormal findings (principal); E66.812 Obesity, class 2; N18.30 Chronic kidney disease, stage 3 unspecified; Z68.36 Body mass index [BMI] 36.0-36.9, adult; I12.9 Hypertensive chronic kidney disease with stage 1 through stage 4 chronic kidney disease, or unspecified chronic kidney disease; R97.20 Elevated prostate specific antigen [PSA]; G47.33 Obstructive sleep apnea (adult) (pediatric); Z99.89 Dependence on other enabling machines and devices; R73.9 Hyperglycemia, unspecified

== ENCOUNTER → 2025-06-07 10:05 | Outpatient (BNVA) | payer MEDICARE, SELFPAY | PROVIDERS: PCP Internal Medicine; Visit Provider Internal Medicine | DX: Z00.00 Encounter for general adult medical examination without abnormal findings (principal); I12.9 Hypertensive chronic kidney disease with stage 1 through stage 4 chronic kidney disease, or unspecified chronic kidney disease; N18.30 Chronic kidney disease, stage 3 unspecified; R97.20 Elevated prostate specific antigen [PSA]; R73.9 Hyperglycemia, unspecified; G47.33 Obstructive sleep apnea (adult) (pediatric); E66.812 Obesity, class 2; Z68.26 Body mass index [BMI] 26.0-26.9, adult; Z71.3 Dietary counseling and surveillance; Z99.89 Dependence on other enabling machines and devices | CPT/HCPCS: 96127; 99397 ==

== ENCOUNTER 2025-06-09 07:01 | Outpatient (REF) | payer MEDICARE, SELFPAY ==
[2025-06-09 10:04] LABS: MANUAL DIFF FLAG NO
[2025-06-09 10:08] LABS: Appearance Urine Clear; Glucose Urine UA Negative (Negative); PH 5.5 (5.0-9.0); Specific Gravity - Urine 1.020 (1.005-1.025)
[2025-06-09 10:21] LABS: Hematocrit 40.5 % (42.0-52.0); Hemoglobin 13.5 g/dl (14.0-18.0); Imm Gran Abs Auto 0.03 X10*3/uL (0.00-0.03); Imm Gran Pct Auto 0.5 % (0.0-0.4); Lymphocytes Absolute Auto 2.0 X10*3/uL (1.2-4.9); Mean Corpuscular HGB Conc 33.3 g/dl (31.0-36.0); Mean Corpuscular Hemoglobin 30.4 pg (27.0-33.0); Mean Corpuscular Volume 91.2 fL (80.0-98.0); NRBC Abs Auto 0.000 X10*3/uL (0.0-0.012); NRBC Pct Auto 0.0 /100WBC (0.0-0.2); Platelet Count 263 X10*3/uL (160-400); Red Blood Count 4.44 X10*6/uL (4.60-5.80); White Blood Count 6.2 X10*3/uL (4.8-10.8)
[2025-06-09 10:29] LABS: Hemoglobin A1C 178.2778 umol/L; Total Hemoglobin (HGBA1C) 3584.0342 umol/L
[2025-06-09 11:19] LABS: Alanine Aminotransferase 13 U/L (0-40); Albumin Level 4.1 g/dL (3.5-5.0); Alkaline Phosphatase 53 U/L (39-117); Anion Gap 13 (12-20); Aspartate Amino Transferase 19 U/L (5-37); Blood Urea Nitrogen 28 mg/dL (9-16); Calcium 8.8 mg/dL (8.4-10.2); Carbon Dioxide 27 mmol/L (22-29); Chloride 106 mmol/L (96-108); Cholesterol 173 mg/dL (<200); Estimated Glomerular Filt Rate 46; HDL Cholesterol 36 mg/dL (>40); Potassium 3.5 mmol/L (3.3-5.1); Sodium 142 mmol/L (135-145); Total Protein 7.3 g/dL (6.5-8.0); Triglycerides 151 mg/dL (<150)
[2025-06-09 11:21] LABS: Microalbum/Creatinine Ratio Ur 44.8 ug/mg cr (<30)
[2025-06-09 11:41] LABS: PSA,Total (Free>4and<10) 5.66 ng/mL (0.00-4.00)
[2025-06-13 13:47] LABS: Free Prostate Spec Ag 0.7 ng/mL; Percent Free Prostate Spec Ag 13 % (calc) (>25)
== END 2025-06-09 07:02 | disposition home or self-care (01) ==
LOC: HO.HMGCLDS 07:01
PROVIDERS: PCP Internal Medicine; Visit Provider Internal Medicine
DX: Z00.00 Encounter for general adult medical examination without abnormal findings (principal); Z12.5 Encounter for screening for malignant neoplasm of prostate; I12.9 Hypertensive chronic kidney disease with stage 1 through stage 4 chronic kidney disease, or unspecified chronic kidney disease; N18.30 Chronic kidney disease, stage 3 unspecified; R73.9 Hyperglycemia, unspecified; R97.20 Elevated prostate specific antigen [PSA]
CPT/HCPCS: 36415; 80053; 80061; 81001; 82043; 82570; 83036; 84153; 84154; 85025

== ENCOUNTER 2025-10-02 11:07 | Outpatient (AMB) | payer MEDICARE, SELFPAY ==
--- NOTE | 2025-10-02 11:15 | MHC.PC.OV ---
Vital Signs 10/02/25 11:32 Height 5 ft 8 in Weight 240 lb BMI 36.5 BP 136/80 Blood Pressure Location Lt brachial Position Sitting Respiration 17 Pulse 91 Pulse Source Pulse Oximeter Pulse Oximetry (%) 98 Oxygen Delivery Method Room Air Intake Visit Reasons: 4 months f/up Intake Note: Pt is here today for 4 months follow up visit. Allergies No Known Allergies (No Known Allergies*) Allergy (Unverified 10/02/25 11:42) Medication List - Last Reconciled 10/02/25 by Amira Wilkins MD amlodipine 10 mg PO DAILY finasteride 5 mg PO DAILY 90 days hydralazine 50 mg PO TID lisinopril 40 mg PO DAILY metoprolol succinate ER 25 mg PO DAILY triamterene-hydrochlorothiazid 37.5-25 mg 1 tab PO QAM Tobacco use date assessed: 10/02/25 Fall risk assessment: No Falls in past year Last assessed Fall Risk: 10/02/25 Dental Screening Dental Screen Date: 06/07/25 HPI 4 months f/up HPI Details Patient presents for the follow-up of type 2 diabetes and hypertension. Patient has not been monitoring his blood glucose and follow ADA diet [facility] Medical History Obesity, Class II, BMI 35-39.9 Colonoscopy refused Elevated PSA CKD (chronic kidney disease) stage 3, GFR 30-59 ml/min Hyperglycemia ROBB on CPAP Annual physical exam HTN (hypertension) Surgical History H/O eye surgery Social History (Reviewed 10/02/25 @ 11:44 by Elvi Reed [facility]) Household Members Other:: Patient spends a lot of time in [facility] taking care of her mother Housing: House Patient Tobacco Use Status: Never used Tobacco e-Cigarette/Vaping Use: Never Used service: No Current occupational status: employed Cognitive needs: No Hearing needs: No Vision needs: Yes Questionnaire Thrive Questionnaire Date Thrive assessed: 06/07/25 I am a: Patient What is your living situation today?: I have a steady place to live Within the past 12 months, did the food you bought not last and you didn't have the money to get more?: Never true Within the past 12 months, did you worry whether your food would run out before you got money to buy more?: Never true Do you have trouble paying for medicines?: No Do you have trouble getting transportation to medical appointments?: No Do you have trouble paying your heating and electricity bill?: No Do you have trouble taking care of your child, family member or friend?: No Do you have trouble with day-to-day activities such as bathing, preparing meals, shopping, managing finances, etc.?: No Are you currently unemployed and looking for a job?: No Are you interested in more education?: No Currently or been in a relationship where the following occur: No concerns reported THRIVE Score: 0 JESSI-7 AMB Questionnaire JESSI-7 Date JESSI - 7 assessed: 06/07/25 Source: Developed by Drs. Kayden Larson, Yaneth Garland, Roel Rivera and colleagues, with an educational irene from [employer]. Review of Systems Const All systems reviewed & are unremarkable except as noted in HPI and below ENT Reports no additional complaints Card Reports no additional complaints Resp Reports no additional complaints GI Reports no additional complaints Physical exam (Primary Care) Vital Signs: Last Vital Signs Pulse 91 10/02/25 11:32 Resp 17 10/02/25 11:32 BP 136/80 10/02/25 11:32 Pulse Ox 98 10/02/25 11:32 Oxygen Delivery Method Room Air 10/02/25 11:32 BMI result Body Mass Index 36.5 Tobacco/Smoking Status: Tobacco use Status Tobacco use date assessed 10/02/25 10/02/25 11:44 Patient Tobacco Use Status Never used Tobacco 10/02/25 11:15 e-Cigarette/Vaping Use Never Used 10/02/25 11:15 Thrive Assessment: Date of Thrive Assessment Date Thrive assessed 06/07/25 10/02/25 11:15 Currently or been in a relationship where the following occur: No concerns reported Const General: no acute distress HENMT Head: Yes normal to inspection Mouth: Normal oral and palatal mucosa present Eyes General: appearance normal, both eyes and all related structures Neck Neck: Yes supple Resp Effort & Inspection: normal respiratory effort Auscultation: clear to auscultation bilaterally Cardio Rhythm: regular rhythm Heart sounds: S1 normal heart sound present and S2 normal heart sound present GI Inspection: Yes normal to inspection Results AMB Hemoglobin A1c AMB Hemoglobin A1c 6.7 % Last Edit by ETHEL Jones on 10/02/25 12:15 Results Reviewed Results Reviewed: Laboratory Last Values Hgb A1c (Clinic) 6.7 % (4.0-6.0) H 10/02/25 12:07 Coding Level of Care Code Est Pt Level 4 (12550) Diagnoses Elevated PSA R97.20 CKD (chronic kidney disease) stage 3, GFR 30-59 ml/min N18.30 HTN (hypertension) I10 Hyperglycemia R73.9 Assessment & Plan Assessment & Plan (1) Elevated PSA: Comment: started on Finasteride, 05/2024, patient noncompliant with medication Code(s): R97.20 - Elevated prostate specific antigen [PSA] Category: Medical Plan: Check PSA referred to [facility]rology (2) CKD (chronic kidney disease) stage 3, GFR 30-59 ml/min: Comment: RENAL US 04/2023 no obstruction, 2 mm left kidney stone Code(s): N18.30 - Chronic kidney disease, stage 3 unspecified Category: Medical Plan: Monitor renal function repeat renal ultrasound to follow-up on nephrolithiasis (3) HTN (hypertension): Code(s): I10 - Essential (primary) hypertension Category: Medical Plan: Continue current medications low-sodium diet increase exercise weight loss discussed with the patient (4) Hyperglycemia: Comment: A1C 6.3 , ADA diet, declined med 05/2024 Code(s): R73.9 - Hyperglycemia, unspecified Category: Medical Plan: A1c is 6.7. ADA diet regular exercise weight loss discussed with the patient he declined medications. Patient will follow-up in 3 months with a fasting labs before Orders: Orders AMB Hemoglobin A1c Today Z13.9 - Encounter for screening, unspecified PSA,Total (Free>4and<10) Today I10 - Essential (primary) hypertension, N18.30 - Chronic kidney disease, stage 3 unspecified, R73.9 - Hyperglycemia, unspecified Comprehensive Egan. Panel Fast 3 Months I10 - Essential (primary) hypertension, N18.30 - Chronic kidney disease, stage 3 unspecified, R73.9 - Hyperglycemia, unspecified Hemoglobin A1c 3 Months I10 - Essential (primary) hypertension, N18.30 - Chronic kidney disease, stage 3 unspecified, R73.9 - Hyperglycemia, unspecified US renal BI Today N18.30 - Chronic kidney disease, stage 3 unspecified Comprehensive Egan. Panel Fast Today I10 - Essential (primary) hypertension, N18.30 - Chronic kidney disease, stage 3 unspecified, R73.9 - Hyperglycemia, unspecified Complete Blood Count Auto Diff Today I10 - Essential (primary) hypertension, N18.30 - Chronic kidney disease, stage 3 unspecified, R73.9 - Hyperglycemia, unspecified Lipid Panel Today I10 - Essential (primary) hypertension, N18.30 - Chronic kidney disease, stage 3 unspecified, R73.9 - Hyperglycemia, unspecified UA w Microscopic Today I10 - Essential (primary) hypertension, N18.30 - Chronic kidney disease, stage 3 unspecified, R73.9 - Hyperglycemia, unspecified Lipid Panel 3 Months I10 - Essential (primary) hypertension, N18.30 - Chronic kidney disease, stage 3 unspecified, R73.9 - Hyperglycemia, unspecified UA w Microscopic 3 Months I10 - Essential (primary) hypertension, N18.30 - Chronic kidney disease, stage 3 unspecified, R73.9 - Hyperglycemia, unspecified Microalbumin, Random (w Creat) 3 Months I10 - Essential (primary) hypertension, N18.30 - Chronic kidney disease, stage 3 unspecified, R73.9 - Hyperglycemia, unspecified Referrals Urology Referral R97.20 - Elevated prostate specific antigen [PSA] Medications: New OneTouch Ultra Test (blood sugar diagnostic) One q.d. 100 ea 3RF NS OneTouch Ultra2 Meter (blood-glucose meter) As directed 1 ea 0RF NS
[2025-10-02 11:32] VITALS: BP 136/80; PULSE 91; RESP 17; O2SAT 98; BMI 36.5
--- OUTSIDE RECORDS SUMMARY | 2025-10-02 14:06 | XMS_ITS | Continuity of Care Document ---
Author Organization [facility] Address [address] [place] [address] Phone [phone] Care Team Providers Care Corrections Nurse Name Role Phone Danny Shay MD Care Team Information Budget Manager U navailable Problems Active Problems Provider Date Hypertensive disorder TY Lenz Onse t: 06/18/2022 Allergies and adverse reactions Description No Known Drug Allergies Medications Active Medications SIG Qnty Indications Order ing Provider Date Diclofenac Sodium [id number] Tablets ER 24HR take one tab by mouth every day with food 30tabs Laurel Madrid MD 12/29/2022 Lisinopril Unknown 000 0 Hydrochlorothiazide Unknown Medications Administered in Office Medication SIG Qnty Indications Ordering Provider Date Inject/Drain Arthrocentesis Intermediate Joint/BursaInjection TY Ware 01/12/2023
== END 2025-10-02 15:28 | disposition home or self-care (01) ==
LOC: HO.HMCC 11:08
PROVIDERS: PCP Internal Medicine; Visit Provider Internal Medicine
DX: R97.20 Elevated prostate specific antigen [PSA] (principal); N18.30 Chronic kidney disease, stage 3 unspecified; I10 Essential (primary) hypertension; R73.9 Hyperglycemia, unspecified; Z13.9 Encounter for screening, unspecified

== ENCOUNTER → 2025-10-02 11:07 | Outpatient (BNVA) | payer MEDICARE, SELFPAY | PROVIDERS: PCP Internal Medicine; Visit Provider Internal Medicine | DX: I10 Essential (primary) hypertension (principal); R73.9 Hyperglycemia, unspecified; R97.20 Elevated prostate specific antigen [PSA]; N18.30 Chronic kidney disease, stage 3 unspecified | CPT/HCPCS: 83036; 99212 ==